=== PATIENT | male | born 1960 | race Caucasian/White ===

== ENCOUNTER 2021-06-06 06:47 | Day surgery (SDC) | payer MEDICAID, OTHER ==
--- NOTE | 2021-06-03 10:10 | HP ---
DATE OF SURGERY: 06/06/2021 HISTORY OF PRESENT ILLNESS: The patient presented to the office with complaints of trouble swallowing. The patient states that there is no saliva. The patient states having some substances getting hung up. PAST MEDICAL HISTORY: Bladder cancer. PAST SURGICAL HISTORY: Rotator cuff. Bladder surgery. ALLERGIES: NKDA. MEDICATIONS: Wellbutrin. FAMILY HISTORY: None reported. SOCIAL HISTORY: Smokes a half pack a day, rarely drinks alcohol. REVIEW OF SYSTEMS: CONSTITUTIONAL: Denies fever or chills. CHEST: Denies shortness of breath. CVS: Denies chest pain. ABDOMEN: Denies abdominal pain, nausea, vomiting, diarrhea, constipation or rectal bleeding. PHYSICAL EXAMINATION: GENERAL: No acute distress. CHEST: Nonlabored. No shortness of breath. CVS: Regular rate and rhythm. ABDOMEN: Soft, nontender. IMPRESSION: Dysphagia. PLAN: EGD with possible dilatation with Dr. Santana Davison. As dictated by Enid Orosco NP.
[2021-06-06] MEDS ORDERED: Lactated Ringers 1,000 ML IV ONE (06:54)
[2021-06-06] MEDS ORDERED: Lactated Ringers 1,000 ML IV SCH (07:00)
[2021-06-06] MEDS ORDERED: DIPRIVAN 200 MG/20 ML IV ONE (09:16)
[2021-06-06] MEDS ORDERED: Xylocaine-Mpf 2% 5 Ml Vial ONE (09:16)
[2021-06-06] MEDS ORDERED: Versed 2 MG/2 ML Injection ONE (09:16)
--- NOTE | 2021-06-06 11:53 | OP ---
SURGERY DATE/TIME: 06/06/2021919 PREOPERATIVE DIAGNOSIS: Difficulty swallowing. POSTOPERATIVE DIAGNOSES: 1) Esophageal stricture size 30 proximal. 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 Active grade IV gastroesophageal reflux disease. PROCEDURE: EGD with Lundberg dilation from size 26 to 48. SURGEON: Santana Davison M.D. ANESTHESIA: MAC. COMPLICATIONS: None. CONDITION: Stable. INDICATION: The patient has difficulty swallowing. He had radiation for head/neck cancer. DESCRIPTION OF PROCEDURE: He was taken to endoscopy. Left lateral decubitus position. Pharyngoesophageal junction was cannulated. It was snug. It was just about the size of the scope at 26. The esophagus there was a lot of esophagitis grade IV/IV at the gastroesophageal junction. It was about an inch band with ulcer, irritated. It was basically bleeding mildly. The fundus, body and antrum satisfactory. Pylorus satisfactory. Duodenal bulb there was a healed duodenal ulcer. Second portion satisfactory. Scope withdrawn looped upon itself. No hiatal hernia just some slight prominence of the upper epigastric fundal folds but normal. Scope withdrawn. It was dilated from 26 to 48 sequentially with Lundberg dilator. The scope reintroduced. There were no signs of any trauma from the dilator. The patient tolerated the procedure well. Successful dilatation. Should have marked improvement in his dysphagia.
== END 2021-06-06 10:38 | disposition home or self-care (01) ==
LOC: SDC 06:47
PROVIDERS: ATTEND Surgery
DX: K22.2 Esophageal obstruction (principal); K29.61 Other gastritis with bleeding; K26.9 Duodenal ulcer, unspecified as acute or chronic, without hemorrhage or perforation; K21.9 Gastro-esophageal reflux disease without esophagitis
CPT/HCPCS: J2250; J2704

== ENCOUNTER 2021-06-13 06:56 | Day surgery (SDC) | payer OTHER ==
[2021-06-13] MEDS ORDERED: Lactated Ringers 1,000 ML IV SCH (07:30)
[2021-06-13] MEDS ORDERED: Lactated Ringers 1,000 ML IV ONE ×2 (07:31→09:43)
[2021-06-13] MEDS ORDERED: Xylocaine-Mpf 2% 5 Ml Vial ONE (08:10)
[2021-06-13] MEDS ORDERED: Versed 2 MG/2 ML Injection ONE (09:45)
[2021-06-13] MEDS ORDERED: DIPRIVAN 200 MG/20 ML IV ONE (09:45)
--- NOTE | 2021-06-13 12:55 | OP ---
SURGERY DATE/TIME: 06/13/2021 0951 PREOPERATIVE DIAGNOSIS: Dysphagia. POSTOPERATIVE DIAGNOSES: 1) Presbyesophagus. 2) A 2-inch hiatal hernia. 3) Grade II/IV gastroesophageal reflux disease. PROCEDURE: EGD. SURGEON: Santana Davison M.D. ANESTHESIA: MAC. COMPLICATIONS: None. CONDITION: Stable. INDICATION: A patient having difficulty swallowing. DESCRIPTION OF PROCEDURE: He is taken to endoscopy. Left lateral decubitus position. Pharyngoesophageal junction cannulated. Esophagus was a little bit large. I believe it was about a size 60-62 from the beginning to the end. There was no Zencker's diverticulum. The cricopharyngeus was satisfactory. The esophagus was wide open down to the gastroesophageal junction. There was a 2-inch hiatal hernia. There was grade II-IV gastroesophageal reflux disease. Fundus, body and antrum satisfactory. Pylorus satisfactory. Duodenal bulb satisfactory. Second portion satisfactory. Scope withdrawn looped upon itself. A 2 inch hiatal hernia. Scope brought back up in the esophagus. There was never a single contraction of the esophagus during the procedure. There was no suggestion of achalasia at all and a cyst was initially suggested with slightly dilated esophagus. Looking at the esophagus appeared normal other than just had no contractions. A harrison discussion with the . Upright posterior for four hours with eating, chewing well establishing small bites of material, washing this down with lots of liquids and fluids. He is not really a candidate for hiatal hernia surgery as he has a major motility disorder of the esophagus and no surgical intervention is suggested. We will continue medical care.
[2021-06-17 16:56] VITALS: BP 112/78; PULSE 69; O2SAT 94
== END 2021-06-13 11:12 | disposition home or self-care (01) ==
LOC: SDC 06:56
PROVIDERS: ATTEND Surgery
DX: K22.89 Other specified disease of esophagus (principal); R13.10 Dysphagia, unspecified; K44.9 Diaphragmatic hernia without obstruction or gangrene; K21.9 Gastro-esophageal reflux disease without esophagitis
CPT/HCPCS: J2250; J2704

== ENCOUNTER 2022-08-14 08:08 | Day surgery (SDC) | payer OTHER ==
--- NOTE | 2022-08-13 11:49 | HP ---
DATE OF SURGERY: 08/14/2022 HISTORY OF PRESENT ILLNESS: The patient is a 62-year-old male who presents with complaints of left inguinal hernia. The patient has been having some pain with this, reporting some bulging in the area. The patient desires intervention. PAST MEDICAL HISTORY: Heartburn. History of bladder cancer, esophageal cancer. PAST SURGICAL HISTORY: Femoral hernia repair x2. ALLERGIES: NKDA. MEDICATIONS: None reported. FAMILY HISTORY: Esophageal cancer. Colon cancer. Stomach cancer. Prostate cancer. SOCIAL HISTORY: Current smoker, denies alcohol. REVIEW OF SYSTEMS: CONSTITUTIONAL: Denies fever or chills. CHEST: Denies shortness of breath. CVS: Denies chest pain. ABDOMEN: Denies abdominal pain. PHYSICAL EXAMINATION: GENERAL: No acute distress. CHEST: Nonlabored. No shortness of breath. CVS: Regular rate and rhythm. ABDOMEN: Soft. IMPRESSION: Symptomatic left inguinal hernia. PLAN: Left inguinal hernia repair with mesh with Dr. Santana Davison. As dictated by Enid Orosco NP.
[2022-08-14] MEDS ORDERED: Lactated Ringers 1,000 ML IV ONE (08:16)
[2022-08-14] MEDS ORDERED: Sensorcaine 0.25% 10 ML ONE (08:16)
[2022-08-14] MEDS ORDERED: Lactated Ringers 1,000 ML IV SCH (08:30)
[2022-08-14] MEDS ORDERED: CEFAZOLIN 2 GM-D5W BAG** 2 GM/50 ML ML IV SCH (09:00)
[2022-08-14 10:06] LABS: ISTAT CREA 0.9 mg/dL (0.6-1.3)
[2022-08-14] MEDS ORDERED: Quelicin Fliptop 200 MG/10 ML ONE (10:25)
[2022-08-14] MEDS ORDERED: DIPRIVAN 200 MG/20 ML IV ONE (10:25)
[2022-08-14] MEDS ORDERED: Versed 2 MG/2 ML Injection ONE (10:26)
[2022-08-14] MEDS ORDERED: SUBLIMAZE 100 MCG/2 ML ONE (10:26)
[2022-08-14] MEDS ORDERED: Zemuron 100 MG/10 ML ONE (10:28)
[2022-08-14] MEDS ORDERED: Marcaine 0.5%/Epinephrine 10 ML ONE (10:55)
[2022-08-14] MEDS ORDERED: Decadron 4 MG INJ ONE (10:56)
[2022-08-14] MEDS ORDERED: PHENYLEPHRINE HCL ONE (11:19)
[2022-08-14] MEDS ORDERED: BRIDION 200MG/2ML IV ONE (11:56)
[2022-08-14] MEDS ORDERED: TORAdol 30 mg Injection ONE (12:01)
--- NOTE | 2022-08-14 13:12 | OP ---
SURGERY DATE/TIME: 08/14/2022 1101 PREOPERATIVE DIAGNOSIS: Symptomatic left inguinal hernia. POSTOPERATIVE DIAGNOSIS: Symptomatic left inguinal hernia, small direct and small indirect. PROCEDURE: Primary suture repair. SURGEON: Santana Davison M.D. ANESTHESIA: General. COMPLICATIONS: None. CONDITION: Stable. INDICATION: The patient has symptomatic hernia. DESCRIPTION OF PROCEDURE: Marked preoperatively. Taken to surgery. General anesthetic. Routine prep and drape. Time out performed. Curvilinear incision. 0.25% Marcaine. External oblique opened. There was a 1 inch indirect hernia sac which was tied off. There was a inch direct hernia that was loosened, was reduced and then it was suture ligated shut near the symphysis. The floor was then reinforced with 0 Prolene back to internal ring. Internal ring one buttress suture of 0 Prolene to narrow the cord just slightly. External oblique closed with 0 Vicryl. Shane fascia approximated with 2-0 Vicryl. Skin closed with 4-0 Vicryl. Steri-Strips applied. Sterile dressing applied. The patient tolerated the procedure satisfactorily.
[2022-08-14 13:17] VITALS: BP 108/80; PULSE 49; O2SAT 96
== END 2022-08-14 13:28 | disposition home or self-care (01) ==
LOC: SDC 08:08
PROVIDERS: ATTEND Surgery
DX: K40.90 Unilateral inguinal hernia, without obstruction or gangrene, not specified as recurrent (principal); Z85.51 Personal history of malignant neoplasm of bladder; Z85.01 Personal history of malignant neoplasm of esophagus
CPT/HCPCS: 36415; 64486; 76937; 76942; 80047; J0330; J0690; J1100; J1885; J2250; J2370; J2704; J3010